=== PATIENT | female | born 2000 | race Two or more races ===

== ENCOUNTER 2025-04-20 02:36 | Emergency (ER) | payer OTHER ==
[~2025-04-20] VITALS: Ht 160 cm; Wt 55.0 kg
--- NOTE | 2025-04-20 03:38 | ED.PDOC ---
History of Present Illness HPI Comments 24-year-old female who presents with chief complaint of throat itchiness and swelling, with the associated shortness of breath. Endorsement of 3 day history of symptoms. She states on vomiting all day, yesterday, as well. Symptoms feels similar to when patient had an abscess in December 2024. Denies any recent known sick contact or trauma. Denies having any this, fever, chills, or further associated symptoms. REVIEW OF SYSTEMS: General: No fever, no chills, HEENT: Throat itchiness and swelling. No neck pain, no blurred vision Cardiac: No chest pain. No palpitations. Lungs: Shortness of breath, GI: Vomiting, no abdominal pain Musculoskeletal: No joint pain, no back pain Skin: No rash, no wound Neuro: No headache, no dizziness, no syncope PHYSICAL EXAM: General: Awake, alert and oriented. No acute distress. Skin: Skin in warm, dry and intact without rashes or lesions. HEENT: The head is normocephalic and atraumatic. Conjunctivae are clear without exudates or hemorrhage. Sclera is non-icteric. Mild posterior pharyngeal erythema. Uvula is midline. No trismus. No submental induration. No cervical lymphadenopathy. Neck: Normal range of motion. No JVD. Cardiac: Regular rate Respiratory: No signs of respiratory distress. No Stridor. Extremities: Upper and lower extremities are atraumatic in appearance without deformity. Neurological: The patient is awake, alert and oriented to person, place, and time with normal speech. Speech is clear. There is no facial asymmetry. Psychiatric: Appropriate mood and affect. Good judgement and insight. Chief Complaint: Sore Throat Time Seen by MD: 02:50 Reviewed Notes: Nurses Notes, Medications, Allergies Allergies: Coded Allergies: NO KNOWN ALLERGIES (Unverified , 04/20/25) Home Meds Active Scripts Acetaminophen (Acetaminophen) 500 Mg Tab, 500 MG PO TIDPRN PRN for 5 Days, #15 TAB Prov:ELISA CLEANING MD 04/20/25 Ibuprofen (Ibuprofen) 600 Mg Tab, 1 TAB PO TID PRN for 5 Days, #15 TAB Prov:ELISA CLEANING MD 04/20/25 Information Source: Patient Mode of Arrival: Ambulatory Severity: Moderate Timing: Days Duration: Since onset Prehospital treatment: None Past Medical History PAST MEDICAL HISTORY: Denies Surgical History: Denies all surgeries [employer] History: No Pertinent [employer] History Family History Family History: Unknown Social History Smoker: Non-Smoker Alcohol: Occasionally Drugs: Denies Drug Use Lives In: Home Was a procedure done? Was a procedure done?: No Differential Dx Considerations may include: Pharyngitis, strep throat, viral syndrome, tonsillitis, among others X-Ray, Labs, Meds, VS Vital Signs Date Time Temp Pulse Resp B/P (MAP) Pulse Ox O2 Delivery O2 Flow Rate FiO2 04/20/25 08:18 98.6 101 15 98/76 (83) 98 98.6 04/20/25 08:18 101 15 98 Room Air 04/20/25 02:41 99.3 103 18 115/72 95 99.3 Lab Test 04/20/25 03:00 Range/Units Group A Streptococcus Rapid Negative Microbiology Date/Time Source Procedure Growth Status 04/20/25 03:00 Throat Nose/Throat Culture - Preliminary Resulted Time of 1ST Reevaluation: 03:20 Reevaluation 1ST: Unchanged Patient Education/Counseling: Treatment, Need For Follow Up Family Education/Counseling: No Family Present SEPSIS Sepsis Screen Date sepsis recognized/suspect: Apr 20, 2025 Time Sepsis recognized/suspect: 0246 Recent Procedure: No On Antibiotic Therapy: No Respiratory Rate >20: No Heart Rate >90: Yes Temp<36 C (96.8 F) or >38.3 C: No SBP <90 or MAP <65 mmHG: No New Acute Mental Status Change: No Is the patient on CPAP, BIPAP,: No Vital Signs Date Time Temp Pulse Resp B/P (MAP) Pulse Ox O2 Delivery O2 Flow Rate FiO2 04/20/25 08:18 98.6 101 15 98/76 (83) 98 98.6 04/20/25 08:18 101 15 98 Room Air 04/20/25 02:41 99.3 103 18 115/72 95 99.3 Departure 1 Departure Time of Disposition: 04:32 Impression: Primary Impression: Sore throat Disposition: 01 HOME / SELF CARE / HOMELESS Condition: Good Additional Instructions: ED DISCHARGE INSTRUCTIONS Instructions: Please read all instructions provided in this packet carefully. Although you have been discharged from the Emergency Department, this does not mean that you have a "clean bill of health". No definitive diagnosis for your symptoms has been made today. It is possible that you are in the process of developing a serious illness. This is why you must return to the ED without fail if any new or worsening symptoms (especially if your symptoms include difficulty swallowing, difficulty breathing, loud breathing, neck pain, chest pain, trouble breathing, abdominal pain, fever, headache, confusion, trouble seeing, or trouble walking) It is also very important that you see a primary care provider (PCP) within the next 1-2 days to follow up. If you are unable to get an appointment, return to the ED for re-evaluation especially if your throat pain is worse or you develop difficulty swallowing or breathing. Sore Throat: Care Instructions Overview Infection by bacteria or a virus causes most sore throats. Cigarette smoke, dry air, air pollution, allergies, and yelling can also cause a sore throat. Sore throats can be painful and annoying. Fortunately, most sore throats go away on their own. If you have a bacterial infection, your doctor may prescribe antibiotics. Follow-up care is a avlia part of your treatment and safety. Be sure to make and go to all appointments, and call your doctor if you are having problems. It's also a good idea to know your test results and keep a list of the medicines you take. How can you care for yourself at home? Gargle with warm salt water several times a day to help reduce swelling and relieve pain. Mix 1/2 teaspoon of salt in 1 cup of warm water. Take an jgpw-hgs-hurztqk pain medicine, such as acetaminophen (Tylenol), ibuprofen (Advil, Motrin), or naproxen (Aleve). Read and follow all instructions on the label. Be careful when taking wplr-ioq-zknegss cold or flu medicines and Tylenol at the same time. Many of these medicines have acetaminophen, which is Tylenol. Read the labels to make sure that you are not taking more than the recommended dose. Too much acetaminophen (Tylenol) can be harmful. Drink plenty of fluids. Fluids may help soothe an irritated throat. Hot fluids, such as tea or soup, may help decrease throat pain. Use jzrm-dmx-mgmreoi throat lozenges to soothe pain. Regular cough drops or hard candy may also help. These should not be given to young children because of the risk of choking. Do not smoke or allow others to smoke around you. If you need help quitting, talk to your doctor about stop-smoking programs and medicines. These can incr ease your chances of quitting for good. Use a vaporizer or humidifier to add moisture to your bedroom. Follow the directions for cleaning the machine. When should you call for help? Call your doctor now or seek immediate medical care if: You have trouble breathing. Your sore throat gets much worse on one side. You have new or worse trouble swallowing. You have a new or higher fever. Watch closely for changes in your health, and be sure to contact your doctor if you do not get better as expected. Credits for Sore Throat: Care Instructions Current as of: July 12, 2024 Author: [employer] Staff Clinical Review Board All [employer] education is reviewed by a team that includes physicians, nurses, advanced practitioners, registered dieticians, and other healthcare professionals. e-Prescriptions Acetaminophen (Acetaminophen) 500 Mg Tab 500 MG PO TIDPRN PRN for 5 Days, #15 TAB Prov: ELISA CLEANING MD 04/20/25 Ibuprofen (Ibuprofen) 600 Mg Tab 1 TAB PO TID PRN for 5 Days, #15 TAB Prov: ELISA CLEANING MD 04/20/25 Comments MDM: 24-year-old female with sore throat. Patient is well-appearing, nontoxic. Patient's symptoms improved during the ED observation. Vital signs stable. Rapid strep screen negative.. Patient is felt stable for discharge home. Patient advised to follow up with primary care provider promptly and return to the emergency department with any new, worsening or concerning symptoms. -------- I reviewed the following notes from the pt's past medical encounters: N/A The following tests were ordered, and results were reviewed by me: (See diagnostic results section) The following test were independently interpreted by me: N/A Additional information was gathered from interviewing the following independent historians: N/A I reviewed and agreed with the following test results read by other providers: N/A I discussed treatments and results with patient Decision regarding hospitalization or escalation of hospital level of care: Risks and benefits of admission for further treatment of patient's condition was considered however due to patient's stable condition patient will be discharged to follow up closely or return to care for worsening of condition or inability to follow up. Critical Care Note Critical Care Time?: No Stability Stability form required: No Heart Score Heart Score: Heart Score Response (Comments) Value History N/A 0 EKG N/A 0 Age N/A 0 Risk Factors N/A 0 Troponin N/A 0 Total 0 I personally scribed for ELISA CLEANING MD ([email or web address]) on 04/20/25 at 03:38. Electronically submitted by Александр Navarro ([email or web address]). I personally scribed for ELISA CLEANING MD ([email or web address]) on 04/20/25 at 04:52. Electronically submitted by Александр Navarro ([email or web address]). ELISA CLEANING MD Apr 20, 2025 03:38
[2025-04-20 03:59] LABS: Rapid Strep A Screen-Throat Negative
[2025-04-20] MEDS ORDERED: IBUP-1454 PO (04:34)
[2025-04-20] MEDS ORDERED: ACET500T58 PO (04:34)
[2025-04-20] MEDS: KETOROLAC TROMETH 30 MG/ML 1ML VIAL IM ONE (08:13)
[2025-04-20 08:18] VITALS: BP 98/76; PULSE 101; RESP 15; TEMP 98.6; O2SAT 98
== END 2025-04-20 08:24 | disposition home or self-care (01) ==
LOC: ER 02:36
DX: J02.9 Acute pharyngitis, unspecified (principal); F10.90 Alcohol use, unspecified, uncomplicated; Z79.899 Other long term (current) drug therapy; Y90.9 Presence of alcohol in blood, level not specified
CPT/HCPCS: 87070; 87880; 96372; 99284; J1100; J1885